=== PATIENT | female | born 1975 | race Asian ===

== ENCOUNTER 2023-05-23 11:28 | Outpatient (CLI) | payer OTHER | END 2023-05-23 11:29 | disposition home or self-care (01) | LOC: CSHRAD 11:28 | PROVIDERS: ATTEND Orthopaedic Surgery | DX: M54.50 Low back pain, unspecified (principal); M54.6 Pain in thoracic spine; M54.2 Cervicalgia; M47.816 Spondylosis without myelopathy or radiculopathy, lumbar region; M47.812 Spondylosis without myelopathy or radiculopathy, cervical region | CPT/HCPCS: 72040; 72070; 72100 ==

== ENCOUNTER 2023-09-29 14:30 | Outpatient (CLI) | payer BC, OTHER | END 2023-09-29 14:31 | disposition home or self-care (01) | LOC: CSHMAMMO 14:30 | PROVIDERS: ATTEND Orthopaedic Surgery | DX: Z13.820 Encounter for screening for osteoporosis (principal); Z78.0 Asymptomatic menopausal state; M54.12 Radiculopathy, cervical region; M54.2 Cervicalgia; M85.89 Other specified disorders of bone density and structure, multiple sites | CPT/HCPCS: 77080 ==